=== PATIENT | female | born 1965 | race Asian ===

== ENCOUNTER 2020-01-06 10:07 | Inpatient (IN) | payer OTHER ==
[~2020-01-06] VITALS: Ht 157.5 cm; Wt 50.0 kg
[2020-01-06 10:51] LABS: BASOPHILS % (AUTO) 0.5 % (0.0-2.0); EOSINOPHILS % (AUTO) 3.9 % (1.0-6.0); HEMATOCRIT 39.9 % (36-46); HEMOGLOBIN 13.5 g/dL (12.0-16.0); LYMPHOCYTES # (AUTO) 1.6 K/uL (1.0-4.8); LYMPHOCYTES % (AUTO) 31.1 % (22.0-44.0); MEAN CORPUSCULAR HGB CONC 33.9 G/dL (31.0-37.0); MEAN CORPUSCULAR VOLUME 88 fL (80-100); MONOCYTES # (AUTO) 0.6 K/uL (0.1-1.0); MONOCYTES % (AUTO) 10.5 % (2.0-9.0); NEUTROPHILS # (AUTO) 2.9 K/uL (1.8-7.7); PLATELET COUNT (AUTO) 185 K/uL (150-450); RED BLOOD CELL COUNT(AUTO) 4.52 MIL/uL (4.00-5.20); RED CELL DISTRIBUTION WIDTH 13.3 % (11.5-14.5)
[2020-01-06 11:01] LABS: ANION GAP 6 mmol/L (8-16); CALCIUM, TOTAL 9.5 mg/dL (8.8-10.5); CARBON DIOXIDE 29 mmol/L (22-29); CHLORIDE 104 mmol/L (98-107); CREATININE 0.78 mg/dL (0.60-1.30); GLOMERULAR FILTR. RATE CALC > 60 mL/min (>60); GLUCOSE,RANDOM 111 mg/dL (70-110); POTASSIUM 4.3 mmol/L (3.5-5.1); SODIUM SERUM 139 mmol/L (136-145); UREA NITROGEN, BLOOD 11 mg/dL (7-18)
[2020-01-06 11:09] LABS: ALANINE AMINOTRANSFERASE 38 U/L (12-78); ALBUMIN 3.8 g/dL (3.4-5.0); ALKALINE PHOSPHATASE 109 U/L (46-116); ASPARTATE AMINOTRANSFERASE 24 U/L (15-37); BILIRUBIN,TOTAL 0.6 mg/dL (0.1-1.0); TOTAL PROTEIN, SERUM 7.6 g/dL (6.4-8.2)
[2020-01-06] MEDS ORDERED: ACETAMINOPHEN 325 MG TABLET PO PRN (11:15)
[2020-01-06] MEDS ORDERED: 0.9% SODIUM CHLORIDE 10 ML SYRINGE IVP PRN (11:15)
[2020-01-06] MEDS ORDERED: DOCUSATE SODIUM 100 MG CAPSULE PO PRN (11:15)
[2020-01-06] MEDS ORDERED: ALBUTEROL SULFATE 2.5 MG/0.5 ML NEB SOLUTION NEB PRN (11:15)
[2020-01-06] MEDS ORDERED: IPRATROPIUM BROMIDE 0.5 MG/2.5 ML NEB SOLUTION NEB PRN (11:15)
[2020-01-06] MEDS ORDERED: ONDANSETRON HCL 4 MG/2 ML VIAL IVP PRN (11:15)
[2020-01-06] MEDS ORDERED: BISACODYL 10 MG RECTAL RECTAL SUPPOSITORY PR PRN (11:15)
[2020-01-06] MEDS: PANTOPRAZOLE SODIUM 40 MG DR TABLET PO SCH (11:24)
[2020-01-06 13:15] LABS: AMPHET/METH SCREEN,URINE NEGATIVE (NEGATIVE); BARBITURATE SCREEN, URINE NEGATIVE (NEGATIVE); BENZODIAZEPINES SCREEN,URINE NEGATIVE (NEGATIVE); CANNABINOID SCREEN,URINE NEGATIVE (NEGATIVE); COCAINE SCREEN,URINE NEGATIVE (NEGATIVE); METHADONE SCREEN, URINE NEGATIVE (NEGATIVE); OPIATE SCREEN,URINE NEGATIVE (NEGATIVE)
[2020-01-06 13:17] LABS: PHENCYCLIDINE SCREEN,URINE NEGATIVE (NEGATIVE)
[2020-01-06 15:39] VITALS: BP 121/69
[2020-01-06 20:23] VITALS: BP 116/66
[2020-01-07 07:32] LABS: BASOPHILS % (AUTO) 0.7 % (0.0-2.0); EOSINOPHILS % (AUTO) 3.8 % (1.0-6.0); HEMATOCRIT 39.1 % (36-46); HEMOGLOBIN 13.3 g/dL (12.0-16.0); LYMPHOCYTES # (AUTO) 1.3 K/uL (1.0-4.8); LYMPHOCYTES % (AUTO) 26.8 % (22.0-44.0); MEAN CORPUSCULAR HEMOGLOBIN 30.2 pg (26.0-34.0); MEAN CORPUSCULAR VOLUME 89 fL (80-100); MONOCYTES # (AUTO) 0.6 K/uL (0.1-1.0); MONOCYTES % (AUTO) 12.6 % (2.0-9.0); NEUTROPHILS # (AUTO) 2.7 K/uL (1.8-7.7); NEUTROPHILS % (AUTO) 56.1 % (40.0-70.0); PLATELET COUNT (AUTO) 173 K/uL (150-450); RED CELL DISTRIBUTION WIDTH 13.1 % (11.5-14.5)
[2020-01-07 07:41] LABS: ANION GAP 9 mmol/L (8-16); CALCIUM, TOTAL 9.1 mg/dL (8.8-10.5); CARBON DIOXIDE 28 mmol/L (22-29); CHLORIDE 101 mmol/L (98-107); CREATININE 0.61 mg/dL (0.60-1.30); GLOMERULAR FILTR. RATE CALC > 60 mL/min (>60); GLUCOSE,RANDOM 106 mg/dL (70-110); POTASSIUM 3.8 mmol/L (3.5-5.1); SODIUM SERUM 138 mmol/L (136-145); UREA NITROGEN, BLOOD 9 mg/dL (7-18)
[2020-01-07 08:13] VITALS: BP 119/70
[2020-01-07] MEDS: PANTOPRAZOLE SODIUM 40 MG DR TABLET PO SCH ×2 (09:00→10:44)
[2020-01-07] MEDS: HALOPERIDOL 5 MG TABLET PO SCH ×4 (10:15→20:11)
[2020-01-07 15:15] VITALS: BP 94/58
[2020-01-07] MEDS ORDERED: HALOPERIDOL LACTATE 5 MG/ML VIAL IM ONE (15:45)
[2020-01-07] MEDS ORDERED: DiphenhydrAMINE HCL 50 MG/ML VIAL IM ONE (15:45)
[2020-01-07] MEDS ORDERED: LORazepam 2 MG/ML VIAL IM ONE (15:45)
[2020-01-07 16:00] VITALS: BP 94/58
[2020-01-07 19:00] VITALS: BP 105/67
[2020-01-08 04:07] VITALS: BP 98/56
[2020-01-08 07:36] VITALS: BP 106/71
[2020-01-08] MEDS: PANTOPRAZOLE SODIUM 40 MG DR TABLET PO SCH (08:09)
[2020-01-08] MEDS: HALOPERIDOL 5 MG TABLET PO SCH ×2 (08:09→21:00)
[2020-01-08 15:20] VITALS: BP 116/72
[2020-01-08 19:37] VITALS: BP 112/65
[2020-01-09 04:20] VITALS: BP 108/2
[2020-01-09 08:15] VITALS: BP 130/65
[2020-01-09] MEDS: HALOPERIDOL 5 MG TABLET PO SCH ×2 (08:47→21:00)
[2020-01-09] MEDS: PANTOPRAZOLE SODIUM 40 MG DR TABLET PO SCH (08:48)
[2020-01-09] MEDS ORDERED: HALO5TAB23 PO (11:41)
[2020-01-09 19:58] VITALS: BP 101/71
[2020-01-10 04:58] VITALS: BP 96/56
[2020-01-10 08:32] VITALS: BP 109/55
[2020-01-10] MEDS: PANTOPRAZOLE SODIUM 40 MG DR TABLET PO SCH (09:00)
[2020-01-10] MEDS: HALOPERIDOL 5 MG TABLET PO SCH (09:00)
[2020-01-10 19:40] VITALS: BP 97/49
[2020-01-11 04:44] VITALS: BP 105/70
[2020-01-11 07:42] VITALS: BP 99/57
[2020-01-11] MEDS: HALOPERIDOL 5 MG TABLET PO SCH (08:32)
[2020-01-11] MEDS: PANTOPRAZOLE SODIUM 40 MG DR TABLET PO SCH (08:32)
[2020-01-11 16:10] VITALS: BP 101/67
== END 2020-01-11 18:20 | DRG 885 ==
LOC: EMS 10:07 → 6S 11:09
PROVIDERS: ADMIT Internal Medicine; ATTEND Internal Medicine
DX: F20.0 Paranoid schizophrenia (principal); R45.851 Suicidal ideations
CPT/HCPCS: G0480; J1200; J1630; J2060

== ENCOUNTER 2020-03-13 14:52 | Inpatient (IN) | payer OTHER ==
[~2020-03-13] VITALS: Ht 167.6 cm; Wt 59.1 kg
[~2020-03-13 14:52] MED LIST: HALO5TAB23 PO
[2020-03-13 16:05] LABS: BASOPHILS % (AUTO) 0.4 % (0.0-2.0); EOSINOPHILS % (AUTO) 1.4 % (1.0-6.0); HEMATOCRIT 39.3 % (36-46); HEMOGLOBIN 13.3 g/dL (12.0-16.0); LYMPHOCYTES # (AUTO) 1.4 K/uL (1.0-4.8); LYMPHOCYTES % (AUTO) 21.5 % (22.0-44.0); MEAN CORPUSCULAR HEMOGLOBIN 30.2 pg (26.0-34.0); MEAN CORPUSCULAR HGB CONC 33.8 G/dL (31.0-37.0); MEAN CORPUSCULAR VOLUME 89 fL (80-100); MONOCYTES # (AUTO) 0.7 K/uL (0.1-1.0); MONOCYTES % (AUTO) 11.4 % (2.0-9.0); NEUTROPHILS # (AUTO) 4.2 K/uL (1.8-7.7); NEUTROPHILS % (AUTO) 65.3 % (40.0-70.0); PLATELET COUNT (AUTO) 178 K/uL (150-450)
[2020-03-13 16:15] LABS: ANION GAP 6 mmol/L (8-16); CARBON DIOXIDE 29 mmol/L (22-29); CHLORIDE 106 mmol/L (98-107); CREATININE 0.76 mg/dL (0.60-1.30); GLOMERULAR FILTR. RATE CALC > 60 mL/min (>60); GLUCOSE,RANDOM 92 mg/dL (70-110); POTASSIUM 4.5 mmol/L (3.5-5.1); SODIUM SERUM 141 mmol/L (136-145); UREA NITROGEN, BLOOD 13 mg/dL (7-18)
[2020-03-13 16:20] LABS: ALANINE AMINOTRANSFERASE 31 U/L (12-78); ALBUMIN 3.7 g/dL (3.4-5.0); ALKALINE PHOSPHATASE 97 U/L (46-116); ASPARTATE AMINOTRANSFERASE 18 U/L (15-37); BILIRUBIN,TOTAL 0.4 mg/dL (0.1-1.0); TOTAL PROTEIN, SERUM 7.3 g/dL (6.4-8.2)
[2020-03-13 17:01] LABS: COVID AG,FIA SOURCE NASOPHARYNGEAL
[2020-03-13 18:14] VITALS: BP 125/68
[2020-03-13] MEDS ORDERED: INFLUENZA VIRUS VACCINE QVS 2020-21 (6MO+)/PF 60 MCG/0.5 ML SYRINGE IM ONE (19:15)
[2020-03-13 20:31] VITALS: BP 102/62
[2020-03-13] MEDS ORDERED: BISACODYL 10 MG RECTAL RECTAL SUPPOSITORY PR PRN (21:45)
[2020-03-13] MEDS ORDERED: ONDANSETRON HCL 4 MG/2 ML VIAL IVP PRN (21:45)
[2020-03-13] MEDS ORDERED: ZOLPIDEM TARTRATE 5 MG TABLET PO PRN (21:45)
[2020-03-13] MEDS ORDERED: MAGNESIUM HYDROXIDE SUSPENSION 30 ML UDCUP PO PRN (21:45)
[2020-03-13] MEDS ORDERED: ACETAMINOPHEN 325 MG TABLET PO PRN (21:45)
[2020-03-14 05:29] VITALS: BP 101/64
[2020-03-14 09:00] VITALS: BP 133/72
[2020-03-14 20:00] VITALS: BP 103/58
[2020-03-15 04:00] VITALS: BP 104/60
[2020-03-15 08:21] VITALS: BP 103/62
[2020-03-15 19:35] VITALS: BP 107/59
[2020-03-16 03:45] VITALS: BP 99/63
[2020-03-16 07:26] VITALS: BP 112/59
[2020-03-16 20:22] VITALS: BP 95/55
[2020-03-17 04:50] VITALS: BP 107/58
[2020-03-17 07:33] VITALS: BP 118/58
[2020-03-17 20:52] VITALS: BP 94/59
[2020-03-18 05:19] VITALS: BP 100/57
[2020-03-18 08:18] VITALS: BP 96/68
[2020-03-18] MEDS: RisperiDONE 1 MG TABLET PO SCH ×2 (11:29→22:12)
[2020-03-18 20:10] VITALS: BP 92/55
[2020-03-19 04:58] VITALS: BP 97/84
[2020-03-19 08:04] VITALS: BP 123/73
[2020-03-19] MEDS: RisperiDONE 1 MG TABLET PO SCH ×2 (10:55→20:31)
[2020-03-19 20:06] VITALS: BP 98/55
[2020-03-20 07:40] VITALS: BP 97/63
[2020-03-20] MEDS: RisperiDONE 1 MG TABLET PO SCH ×2 (08:23→20:15)
[2020-03-20 20:30] VITALS: BP 91/50
[2020-03-21 04:40] VITALS: BP 104/64
[2020-03-21 07:57] VITALS: BP 92/64
[2020-03-21] MEDS: RisperiDONE 1 MG TABLET PO SCH ×2 (08:02→20:06)
[2020-03-21 20:00] VITALS: BP 109/65
[2020-03-22 04:00] VITALS: BP 99/63
[2020-03-22] MEDS: RisperiDONE 1 MG TABLET PO SCH ×2 (08:12→21:00)
[2020-03-22 08:56] VITALS: BP 97/65
[2020-03-22 20:12] VITALS: BP 95/58
[2020-03-23 04:10] VITALS: BP 116/65
[2020-03-23 07:51] VITALS: BP 99/60
[2020-03-23] MEDS: RisperiDONE 1 MG TABLET PO SCH ×2 (09:00→20:06)
[2020-03-23 20:15] VITALS: BP 106/58
[2020-03-24 05:00] VITALS: BP 95/55
[2020-03-24 08:43] VITALS: BP 101/62
[2020-03-24] MEDS: RisperiDONE 1 MG TABLET PO SCH ×2 (09:00→21:00)
[2020-03-24 20:42] VITALS: BP 101/55
[2020-03-25 04:55] VITALS: BP 89/52
[2020-03-25 07:31] VITALS: BP 100/63
[2020-03-25] MEDS: RisperiDONE 1 MG TABLET PO SCH ×2 (08:12→20:41)
[2020-03-25 21:18] VITALS: BP 94/56
[2020-03-26 05:13] VITALS: BP 90/53
[2020-03-26 07:35] VITALS: BP 91/50
[2020-03-26] MEDS: RisperiDONE 1 MG TABLET PO SCH (08:13)
[2020-03-26 20:00] VITALS: BP 99/45
[2020-03-26] MEDS: RisperiDONE 2 MG TABLET PO SCH (20:18)
[2020-03-27 05:15] VITALS: BP 91/52
[2020-03-27 07:56] VITALS: BP 109/53
[2020-03-27] MEDS: RisperiDONE 2 MG TABLET PO SCH ×2 (08:44→21:00)
[2020-03-27 21:20] VITALS: BP 92/60
[2020-03-28 05:55] VITALS: BP 90/62
[2020-03-28 08:36] VITALS: BP 90/57
[2020-03-28] MEDS: RisperiDONE 2 MG TABLET PO SCH ×2 (09:00→20:06)
[2020-03-28 20:26] VITALS: BP 100/55
[2020-03-29 05:02] VITALS: BP 111/58
[2020-03-29 08:23] VITALS: BP 98/64
[2020-03-29] MEDS: RisperiDONE 2 MG TABLET PO SCH ×2 (09:00→19:47)
[2020-03-29 20:10] VITALS: BP 97/57
[2020-03-30 05:13] VITALS: BP 112/59
[2020-03-30] MEDS: RisperiDONE 2 MG TABLET PO SCH ×2 (08:15→20:00)
[2020-03-30 08:35] VITALS: BP 89/55
[2020-03-30 19:58] VITALS: BP 99/62
[2020-03-31 05:00] VITALS: BP 88/48
[2020-03-31] MEDS: RisperiDONE 2 MG TABLET PO SCH (08:02)
[2020-03-31 08:12] VITALS: BP 86/53
== END 2020-03-31 18:50 | DRG 885 ==
LOC: EMS 14:52 → 6S 17:52
PROVIDERS: ADMIT Hospitalist; ATTEND Hospitalist
DX: F20.0 Paranoid schizophrenia (principal); R45.851 Suicidal ideations; F41.9 Anxiety disorder, unspecified; Z91.19 Patient's noncompliance with other medical treatment and regimen; Z20.822 Contact with and (suspected) exposure to COVID-19; Z28.21 Immunization not carried out because of patient refusal
CPT/HCPCS: 87426; 99285; G0480